=== PATIENT | female | born 1945 | race Caucasian/White ===

== ENCOUNTER 2020-04-19 13:00 | Outpatient (RCR) | payer MEDICARE, SELFPAY ==
--- NOTE | 2020-04-19 13:55 | PTOPEVAL ---
Thank you for referring Marci Bal to [facility].? The patient is scheduled to be seen for therapy? __2__x/week for 8 visits. Please review, sign, date and return this plan of care ITALO. I agree with and certify that the following plan of care is medically necessary. Referring Physician Date Admitting Provider: Attending Provider: Rolf Blackburn, Referring Provider: *PT Outpatient Evaluation Start: 04/19/20 13:11 Freq: Status: Active Protocol: Document 04/19/20 13:11 SHILO (Rec: 04/19/20 13:54 SHILO [email or web address]) Therapy Assessment Status Assessment Status Assessment Status Evaluation Evaluation Information Problem Diagnosis bilateral knee pain Onset 04/13/20 Subjective Information Pt. reports that she has had Query Text:As Reported By Patient/ on/off knee pain for about 15 Family years. She notes recent pain increase. Pt. reports that she notes increased popping in the knees and weakness. She reports that pain is intermittent and more associated with standing and stair climbing. She reports that jumping rope has become difficult, and states that she is focusing more on yoga. She notes some trouble with the yoga poses due to knee pain. She reports that her goal for therapy is to decrease pain so she can remain active. Prior Level of Function Activity Level (Last 3 Months) Occupation retired Hand Dominance Right Activity of Daily Living Ability Independent Indoor/Home Mobility Independent Community Mobility Independent Stairs Ability Independent Functional Cognition (Planning, Shopping Independent , Taking Medications) Cooking Yes Cleaning Yes Laundry Yes Shopping Yes Driving Yes Pain Assessment Pain Scale Pain Scale Used Numeric (1 - 10) Self Report Pain Assessment Bilateral Knee(s) Reported Pain Level 0 Lowest Pain Intensity 0 Greatest Pain Intensity 2 Pain Aggravating Factors Stair Climbing,Walking,Weight Bearing/Standing Pain Score Pain Score 0: Self Report Inter
== END 2020-05-12 13:36 | disposition home or self-care (01) ==
LOC: CHSPT 13:00
PROVIDERS: PCP Family Medicine; Visit Provider Family Medicine
DX: M25.561 Pain in right knee (principal); M25.562 Pain in left knee
CPT/HCPCS: 97014; 97110; 97161; G0283

== ENCOUNTER 2024-12-19 09:48 | Outpatient (CLI) | payer MEDICARE, SELFPAY ==
--- OUTSIDE RECORDS SUMMARY | 2024-12-19 09:55 | XMS_ITS | Referral Summary ---
Author Organization [facility] Address [address] [place] [address] Care Team Providers Care Public Service Officer Name Role Phone Rolf Blackburn MD Primary Care Provider [phone] Allergies No known active allergies Medications rosuvastatin (CRESTOR) 5 mg tablet 9 Active LORazepam (ATIVAN) 0.5 mg tablet 9 Active fluticasone propionate (FLONASE) 50 mcg/actuation nasal spray Administer 1 spray into affected nostril(s) daily as needed Active loratadine (Claritin) 10 mg tablet Active cholecalciferol (VITAMIN D-3) 2,000 unit tablet Take by mouth daily Active coQ10, ubiquinol, 100 mg capsule Take by mouth daily Active VITAMIN B COMPLEX ORAL Take by mouth Act jayleen Active Problems Problem Noted Date Diagnosed Date Thyroid lump 11/24/2015 Social History Tobacco Use Types Packs/Day Years Used Date Smoking Tobacco: Never Smokeless Tobacco: Never Comments Unknown Sex and Gender Information Value Date Recorded Sex Assigned at Not on file Legal Sex Female 11:57 AM ACCOUNTANT BOOKKEEPER Gender Identity Not on file Sexual Orientation Not on file Last Filed Vital Signs Vital Sign Reading Time Taken Comments Blood Pressure 119/71 06/02/2019 9:06 AM ACCOUNTANT BOOKKEEPER Pulse 79 06/02/2019 9:06 AM ACCOUNTANT BOOKKEEPER Temperature 36.4 C (97.6 F) 06/02/2019 9:06 AM ACCOUNTANT BOOKKEEPER Respiratory Rate - - Oxygen Saturation 99% 06/02/2019 9:06 AM ACCOUNTANT BOOKKEEPER Inhaled Oxygen Concentration - - Weight 72.6 kg (160 lb) 06/02/2019 9:06 AM ACCOUNTANT BOOKKEEPER Height 158.8 cm (5' 2.5) 06/02/2019 9:06 AM ACCOUNTANT BOOKKEEPER Body Mass Index 28.8 06/02/2019 9:06 AM ACCOUNTANT BOOKKEEPER Plan of Treatment Not on file Insurance [facility] MEDICARE ADVANTAGE Care Teams Public Service Officer Relationship Specialty Start Date End Date Rolf Blackburn MD [address] [place] [id number] PCP - General 09/25/16
--- OUTSIDE RECORDS SUMMARY | 2024-12-19 09:55 | XMS_ITS | Clinical Summary ---
Author Organization [facility] Address [address] [place] [address] Care Team Providers Care Grain Weigher Name Role Phone Unavailable Primary Care Provider Unavailabl e Source Comments [facility] [employer],non-owned Affiliates and Associated Physician Practices is amultiple site organization consisting of ambulatory clinics and hospital sitesin [place], [place], [place] and [place]. This disclosure is being madepursuant to the Care Everywhere program and may not contain all information available regarding this patient. Last updated 18.[facility] [employer] Social History Tobacco Use Types Packs/Day Years Used Date Smoking Tobacco: Never Assessed Comments Unknown Sex and Gender Information Value Date Recorded Sex Assigned at Not on file Legal Sex Female 6:29 AM TUBULAR SPLITTING MACHINE TENDER Gender Identity Not on file Sexual Orientation Not on file Plan of Treatment Health Maintenance Due Date Last Done Comments BONE DENSITY TESTING 1945 HEPATITIS C SCREENING 10/21/1965 DTAP/TDAP/TD VACCINES (1 - Tdap) 10/25/1966 PNEUMOCOCCAL VACCINE 50+ (1 of 1 - PCV) 10/25/1997 ZOSTER VACCINE (1 of 2) 10/25/1997 Respiratory Syncytial Virus (RSV) Vaccine Pt: or over 60 yrs (1 - 1-dose 75+ series) 10/25/2022 COVID-19 VACCINE ( - 2023-2 5 season) 2024 DEPRESSION SCREENING 05/21/2024 MEDICARE AWV CALENDAR YEAR 2024 INFLUENZA VACCINE (#1) 2025 HEPATITIS B VACCINE Aged Out No longe r eligible based on patient's age to complete this topic HIB VACCINE Aged Out No longer eligi ble based on patient's age to complete this topic HPV VACCINE Aged Out No longer eligi ble based on patient's age to complete this topic MENINGOCOCCAL (Group B) VACC INE SHARED DECISION-MAKING Aged Out No longer eligibl e based on patient's age to complete this topic MENINGOCOCCAL GROUPS A/C/Y/W VACCINE Aged Out No longer eligible b ased on patient's age to complete this topic Insurance [facility] MANAGED MEDICARE ADV
--- OUTSIDE RECORDS SUMMARY | 2024-12-19 09:55 | XMS_ITS | Encounter Summary ---
Author Organization [facility] Address [address] [place] [address] Care Team Providers Care Trencher Driver Name Role Phone Unavailable Primary Care Provider Unavailabl e Encounter Details Date Type Department Care Team (Late st Contact Info) Description 07/19/2022 Lab Requisition [facility] [address] [place] [id number] Guille Lundberg MD [address] [place] [address] Social History Tobacco Use Types Packs/Day Years Used Date Smoking Tobacco: Never Assessed Comments Unknown Sex and Gender Information Value Date Recorded Sex Assigned at Not on file Legal Sex Female 6:29 AM SENIOR COPYWRITER Gender Identity Not on file Sexual Orientation Not on file documented as of this encounter Plan of Treatment Not on file documented as of this encounter Procedures Procedure Name Priority Date/Time Associated Diagnosis Comments DERMATOPATHOLOGY Routine 07/18/2022 12:0 0 AM SENIOR COPYWRITER documented in this encounter Results * DERMATOPATHOLOGY (07/18/2022 12:00 AM SENIOR COPYWRITER) Case Report Dermatopathology Report Case: [id number] Authorizing Provider: Guille Lundberg MD Collected: 07/18/2022 12:00 AM Ordering Location: [facility] Received: 07/19/2022 06:39 AM Pathologist: Yomaira Fonseca MD Specimen: Skin, right cheek 3 2:26 PM SENIOR COPYWRITER DERMATOPATHOLOGY LABORATORY Final Diagnosis Specimen A. SKIN, right cheek: HYPERPLASTIC (HYPERTROPHIC) ACTINIC KERATOSIS, LICHENOID (L57.0) 2:26 PM SENIOR COPYWRITER DERMATOPATHOLOGY LABORATORY at 1426 SENIOR COPYWRITER Clinical History [place] vs [facility] vs [facility] Path#[id number] 3 2:26 PM [facility] DERMATOPATHOLOGY LABORATORY Gross Description Specimen A: Received is one formalin filled container labeled with the patient's name and designated right cheek. The specimen consists of a shave biopsy measuring 5x2x1 mm. Jar 0. 3 2:26 PM [facility] DERMATOPATHOLOGY LABORATORY Microscopic Description Specimen A. SKIN, right cheek: There is hyperkeratosis alternating with parakeratosis. There is epidermal hyperplasia with disorderly maturation of keratinocytes with nuclear pleomorphism confined to the lower half of the epidermis. The dermis shows a band-like, chronic inflammatory infiltrate with occasional apoptotic keratinocytes and some basal vacuolar alteration. 3 2:26 PM [facility] DERMATOPATHOLOGY LABORATORY Disclaimer An external and internal positive and negative controls are appropriate for the histochemical, immunohistochemical and immunofluorescence stain(s) in this case (if any), except where stated explicitly. The performance characteristics of the stain(s) cited in this report were developed and its performance characteristic determined by the Dermatopathology Laboratory at [facility], directed by Dr. Doroteo Magaña. These tests need not be, and therefore are not, approved by the [place] Food and Drug Administration. The tests are used for clinical purposes. Billing Codes Specimen Charges Stain Charges 91502 1 3 2:26 PM [facility] DERMATOPATHOLOGY LABORATORY Embedded Images 3 2:26 PM [facility] DERMATOPATHOLOGY [facility]ORATORY Pathology/Cytolog y TISSUE SPECIMEN FROM SKIN / Unknown 07/18/2022 07/19/2022 6:39 AM SENIOR COPYWRITER us Guille Lundberg MD LAB - PATHOLOGY/CYTOLOGY ORDER RIVER Final Result DERMATOPATHOLOGY LABORATORY [facility] - Department of Dermatology [address] [place] [address], [facility] [phone] documented in this encounter Visit Diagnoses Not on filedocumented in this encounter
--- OUTSIDE RECORDS SUMMARY | 2024-12-19 09:55 | XMS_ITS | Clinical Summary ---
Author Organization [facility] Address [address] [place] [address] Care Team Providers Care Hardness Tester Name Role Phone Rolf Blackburn MD Primary Care Provider [phone] Allergies No known active allergies Medications rosuvastatin [...] Noted Date Diagnosed Date Thyroid lump 11/24/2015 Surgical History Surgery Date Site/Laterality Comments SECTION EYE SURGERY TONSILLECTOMY Medical History Medical History Date Comments Hyperlipidemia Family History Medical History Relation Name Comments Sudden Cardiac Brother Coronary artery disease Father Heart attack Father Lung cancer Mother Family history of lung cancer - (Added by TW Conv) Relation Name Status Comments Brother Father Mother Social History Tobacco Use Types Packs/Day Years Used Date Smoking Tobacco: Never Smokeless Tobacco: Never Comments Unknown Sex and Gender Information Value Date Recorded Sex Assigned at Not on file Legal Sex Female 11:57 AM CLOTH MERCERIZING SUPERVISOR Gender Identity Not on file Sexual Orientation Not on file Obstetrics History Last Filed Vital Signs Vital Sign Reading Time Taken Comments Blood Pressure 119/71 06/02/2019 9:06 AM CLOTH MERCERIZING SUPERVISOR Pulse 79 06/02/2019 9:06 AM CLOTH MERCERIZING SUPERVISOR Temperature 36.4 C (97.6 F) 06/02/2019 9:06 AM CLOTH MERCERIZING SUPERVISOR Respiratory Rate - - Oxygen Saturation 99% 06/02/2019 9:06 AM CLOTH MERCERIZING SUPERVISOR Inhaled Oxygen Concentration - - Weight 72.6 kg (160 lb) 06/02/2019 9:06 AM CLOTH MERCERIZING SUPERVISOR Height 158.8 cm (5' 2.5) 06/02/2019 9:06 AM CLOTH MERCERIZING SUPERVISOR Body Mass Index 28.8 06/02/2019 9:06 AM CLOTH MERCERIZING SUPERVISOR Plan of Treatment Not on file Insurance [facility] MEDICARE ADVANTAGE Care Teams Hardness Tester Relationship Specialty Start Date End Date Rolf Blackburn MD [address] [place] [id number] PCP - General 09/25/16
--- OUTSIDE RECORDS SUMMARY | 2024-12-19 09:55 | XMS_ITS | Encounter Summary ---
Author Organization [facility] [employer] [facility] Address [address] [place] [address] Phone Care Team Providers Care Fountain Brush Assembler Name Role Phone Rolf Blackburn MD Primary Care Provider [phone] Encounter Details Date Type Department Care Team (Latest Contact Info) Description 05/09/2019 Orders Only [facility] Scanning, Provider Social History Tobacco Use Types Packs/Day Years Used Date Smoking Tobacco: Never Assessed Comments Unknown Sex and Gender Information Value Date Recorded Sex Assigned at Not on file Legal Sex Female 11:57 AM SOLAR CREW MEMBER Gender Identity Not on file Sexual Orientation Not on file documented as of this encounter Plan of Treatment Not on file documented as of this encounter Procedures Procedure Name Priority Date/Time Associated Diagnosis Comments SCAN - LABS 05/09/2019 documented in this encounter Results * SCAN - LABS (05/09/2019) us Provider Scanning Final Result documented in this encounter Visit Diagnoses Not on filedocumented in this encounter Care Teams Fountain Brush Assembler Relationship Specialty Start Date End Date Rolf Blackburn MD [address] [place] [id number] PCP - General 09/25/16 documented as of this encounter
--- NOTE | 2024-12-19 10:00 | ECG_ITS ---
Test Date: 2024-12-19 10:09:20 Measurements Intervals [place] Rate: 57 P: 68 TN: 221 QRS: 38 QRSD: 113 T: 67 QT: 396 QTc: 387 Interpretive Statements SINUS BRADYCARDIA WITH FIRST DEGREE AV BLOCK INCOMPLETE RIGHT BUNDLE BRANCH BLOCK BORDERLINE T WAVE ABNORMALITY- ANTERIOR LEADS BORDERLINE ECG No previous ECG available for comparison Electronically Signed On 12-19-2024 10:11:05 CDT by Sundeep Mcpherson D.O.
== END 2024-12-19 09:49 | disposition home or self-care (01) ==
LOC: CHSLAB 09:55 → CHSCARD 09:57
PROVIDERS: PCP Internal Medicine; Visit Provider Internal Medicine
DX: E78.2 Mixed hyperlipidemia (principal); E03.9 Hypothyroidism, unspecified; I45.19 Other right bundle-branch block; R00.1 Bradycardia, unspecified; I44.0 Atrioventricular block, first degree
CPT/HCPCS: 93005